=== PATIENT | male | born 1960 | race Caucasian/White ===

== ENCOUNTER 2018-07-10 00:55 | Emergency (ER) | payer OTHER ==
[~2018-07-10] VITALS: Ht 182.9 cm; Wt 93.4 kg
[~2018-07-10 00:55] MED LIST: DIVA500T4; LEVE100012
[2018-07-10 01:58] LABS: Basophils # (auto) 0.1 uL; Basophils % (auto) 0.7 % (0.0-2.0); Eosinophils # (auto) 0.1 uL; Eosinophils % (auto) 0.4 % (0.0-7.0); Hematocrit 45.3 % (41.0-53.0); Hemoglobin 15.2 g/dL (13.5-17.5); Lymphocytes # (auto) 3.1 uL; Lymphocytes % (auto) 15.4 % (10.0-50.0); Mean Corpuscular Hemoglobin 31.2 pg (28.0-32.0); Mean Corpuscular Hgb Conc. 33.6 g/dL (32.0-36.0); Mean Corpuscular Volume 93.1 fL (80.0-100.0); Monocytes # (auto) 1.5 uL; Monocytes % (auto) 7.5 % (0.0-12.0); Neutrophils # (auto) 15.4 uL; Platelet Count (auto) 224 10^3/uL (140-450); Red Blood Cells 4.87 10^6/uL (4.5-5.90); Red Cell Distribution Width 13.7 % (11.8-14.3); White Blood Cell 20.3 10^3/uL (4.4-10.8)
[2018-07-10 02:16] LABS: Alanine Aminotransferase 27 U/L (16-61); Albumin 3.9 g/dL (3.4-5.0); Anion Gap 8 (5-15); BUN/Creatinine Ratio 10.1; Blood Urea Nitrogen 10 mg/dL (7-18); Calcium 8.4 mg/dL (8.5-10.1); Carbon Dioxide 28 mmol/L (21-32); Chloride 105 mmol/L (98-107); GFR African American 100 mL/min; GFR Non-African American 83 mL/min; Glucose 121 mg/dL (74-106); Potassium 4.1 mmol/L (3.5-5.1); Sodium 141 mmol/L (136-145)
[2018-07-10 02:21] LABS: Alkaline Phosphatase 61 U/L (45-117); Aspartate Aminotransferase 13 U/L (15-37); Bilirubin, Total 0.2 mg/dL (0.2-1.0); Total Protein 7.4 g/dL (6.4-8.2)
[2018-07-10] MEDS ORDERED: VANCOMYCIN 1GM/250ML 250 ML IV ONE (04:30)
[2018-07-10] MEDS ORDERED: PIPERACILLIN-TAZOB 3.375GM 100 ML IV ONE (04:30)
[2018-07-10 05:25] LABS: Urine Bacteria FEW /hpf (None Seen); Urine Blood Negative /uL (Negative); Urine Hyaline Cast FEW /lpf (0 - 2); Urine Specific Gravity 1.015 (1.001-1.035); Urine WBC 1 /hpf (0 - 3)
[2018-07-10 06:18] LABS: Lactic Acid w/Reflex 2.1 mmol/L (0.4-2.0)
[2018-07-10 06:30] LABS: INR 0.93 (0.9-1.15); Partial Thromboplastin Time 25.9 sec (23.78-33.04)
[2018-07-10] MEDS ORDERED: MECLIZINE HCL 25 MG TAB PO ONE (07:45)
[2018-07-10] MEDS ORDERED: PROMETHAZINE HCL 25 MG/ML 1ML IV ONE (09:15)
[2018-07-10] MEDS ORDERED: KETOROLAC TROMETH 30 MG/ML 1ML VIAL IV ONE (09:15)
[2018-07-10 11:30] VITALS: BP 151/88
== END 2018-07-10 13:03 | disposition home or self-care (01) ==
LOC: EDBD 00:55 → ER 00:55
DX: H81.13 Benign paroxysmal vertigo, bilateral (principal); D72.829 Elevated white blood cell count, unspecified; G43.909 Migraine, unspecified, not intractable, without status migrainosus; G40.909 Epilepsy, unspecified, not intractable, without status epilepticus; I10 Essential (primary) hypertension; M10.9 Gout, unspecified
CPT/HCPCS: 36415; 36600; 70450; 71045; 80053; 81001; 82553; 82805; 82962; 83605; 84484; 85025; 85379; 85610; 85730; 86850; 86900; 86901; 87040; 93005; 94761; 96365; 96366; 96368; 96375; 99284; J1885; J2543; J2550; J3370